=== PATIENT | female | born 1970 | race Caucasian/White ===

== ENCOUNTER 2022-01-02 17:02 | Emergency (ER) | payer OTHER, SELFPAY ==
--- NOTE | ~2022-01-02 | XR_ITS ---
EXAMINATION: XR CHEST CLINICAL INFORMATION: Chest pain COMPARISON: None TECHNIQUE: Frontal view of the chest was obtained. FINDINGS: No significant abnormality is noted involving the heart, lungs, mediastinum, bony thorax or soft tissues. Surgical clips are noted in the gallbladder fossa. XR/XR chest 1V IMPRESSION: Unremarkable examination.
[2022-01-02 17:15] VITALS: BP 122/69; PULSE 72; RESP 18; TEMP 36.7; O2SAT 99; BMI 35.9
--- NOTE | 2022-01-02 17:19 | ECG_ITS ---
Test Reason : chest pain Blood Pressure : / mmHG Vent. Rate : 069 BPM Atrial Rate : 069 BPM P-R Int : 162 ms QRS Dur : 080 ms QT Int : 398 ms P-R-T Axes : 069 069 035 degrees QTc Int : 426 ms Normal sinus rhythm Normal ECG When compared with ECG of 23-NOV-2017 01:29, No significant change was found Referred By: Generic ED Physician Electronically Signed By:Evan Méndez
[2022-01-02 20:17] LABS: MANUAL DIFF FLAG NO
[2022-01-02 20:19] LABS: Basophils Absolute Auto 0.1 X10*3/uL (0.0-0.2); Basophils Percent Auto 0.6 % (0-2); Eosinophils Absolute Auto 0.2 X10*3/uL (0.0-0.4); Eosinophils Percent Auto 2.2 % (0-4); Hematocrit 42.4 % (37.0-47.0); Imm Gran Abs Auto 0.02 X10*3/uL (0.00-0.03); Imm Gran Pct Auto 0.2 % (0.0-0.4); Lymphocytes Absolute Auto 2.7 X10*3/uL (1.2-4.9); Lymphocytes Percent Auto 29.1 % (20-40); Mean Corpuscular Volume 93.8 fL (80.0-98.0); Mean Platelet Volume 10.7 fL (9.4-12.3); Monocytes Absolute Auto 0.6 X10*3/uL (0.1-1.2); Monocytes Percent Auto 5.9 % (2-11); Neutrophils Absolute Auto 5.8 x10*3/uL (2.0-8.3); Platelet Count 270 X10*3/uL (160-400); Red Blood Count 4.52 X10*6/uL (4.20-5.50); Red Cell Distribution Width 13.3 % (11.0-16.0); White Blood Count 9.3 X10*3/uL (4.8-10.8)
[2022-01-02 20:35] LABS: Anion Gap 13 (12-20); Blood Urea Nitrogen 10 mg/dL (9-16); Calcium 9.2 mg/dL (8.4-10.2); Carbon Dioxide 23 mmol/L (22-29); Chloride 106 mmol/L (96-108); Creatinine Clr Calc Pharmacy 90.7; Estimated Glomerular Filt Rate > 60; Glucose Random 122 mg/dL (60-115); Potassium 4.3 mmol/L (3.3-5.1); Sodium 138 mmol/L (135-145)
[2022-01-02 20:42] LABS: Troponin-I High Sensitivity < 3.5 ng/L (<3.5-17.0)
--- NOTE | 2022-01-02 21:26 | ED.CHESTPAIN ---
HPI - Chest Pain General Chief Complaint: Chest Pain Stated Complaint: headache,left arm numbness Time Seen by Provider: 01/02/22 21:26 Source: patient Mode of arrival: ambulatory Limitations: language barrier (Patient's 1st language is [place], she does understand some [place], the patient's speaks [place] and [place]ayan) History of Present Illness HPI narrative: 51-year-old female who presents emergency department for evaluation of dizziness and chest pain. Patient states she woke up this morning and after turning her head she felt dizzy. She describes the sensation is if she is floating and spinning in the air. She states that every time she turns her head or bends forward she gets dizzy. She states the dizziness was associated with nausea but no vomiting. Patient states this morning she had a brief episode of chest tightness. She runs a hand across her chest when asked to localize the pain. She states that the pain was constant that lasted minutes and then resolved. The pain did radiate down her left arm. She states that her left arm and fingers were tingling. She states the pain was moderate intensity. She has not had any other episodes since this morning. She states however that the dizziness has persisted. She states she has had similar dizziness in the past. MD complaint: chest pain Onset (ago): minute(s) (5) Timing of current episode: other (One episode this morning) Prior episodes: No Onset: during rest Pain location: other (Across the anterior chest) Pain radiation: left arm (Tingling as the left arm and left hand) Severity: moderate Pain scale (0-10): 5 Quality: tightness Relieving factors: other (Resolved spontaneously) Exacerbating factors: nothing Associated symptoms: nausea Treatment prior to arrival: none Related Data Previous Rx's Medication Instructions Recorded meclizine 25 mg tablet (Dramamine 25 mg PO TID PRN dizziness #20 tabs 01/02/22 Less Drowsy) ondansetron 4 mg disintegrating 4 mg PO Q6-8H PRN nausea and 01/02/22 tablet vomiting #14 tabs Allergies Allergy/AdvReac Type Severity Reaction Status Date / Time No Known Allergies Allergy Verified 01/02/22 17:15 [No Known Allergies*] Review of Systems Review of Systems: Yes all other systems are reviewed and are negative [facility] Past Medical History [facility] Narrative: Past medical history: None. Past surgical history: Hernia repair and cholecystectomy. Social history: She is her is here in the emergency department with her. She denies tobacco, alcohol and drug use Social History Social History Advance Directives: No Advance Directives Information Provided: Yes Physical Exam Vital Signs: Vital Signs: Last Vital Signs Temp 97.7 F 01/02/22 21:35 Pulse 68 01/02/22 21:35 Resp 15 01/02/22 21:35 BP 137/80 01/02/22 21:35 Pulse Ox 99 01/02/22 21:35 O2 Del Method 01/02/22 21:35 BMI result Body Mass Index 35.9 Const: General: cooperative and no acute distress Orientation/consciousness: oriented to person and oriented to place Limitations: no limitations HEENT: Head: Yes normal to inspection, Yes normocephalic and Yes atraumatic Ears: external ears normal General nose exam: Normal external nose present Face and sinus: Yes normal facial exam Mouth: Normal oral and palatal mucosa present Throat: Yes posterior oropharynx normal Eyes: Alignment and Position: alignment normal Periorbital: periorbital findings normal Eyelids: Yes eyelids normal Conjunctivae: conjunctivae normal Sclerae: sclerae normal Pupils: Equal, round and reactive pupils present EOM: EOMs intact bilaterally and Nystagmus present (Lateral) Neck: Neck: Yes normal visual inspection, Yes no lymphadenopathy, Yes trachea midline and Yes supple Chest: Chest palpation & inspection: normal inspection of the chest and normal palpation of entire chest wall Resp: Effort & Inspection: normal respiratory effort and able to speak in complete sentences Auscultation: clear to auscultation bilaterally Cardio: Rate: regular rate Rhythm: regular rhythm Heart sounds: S1 normal heart sound present, S2 normal heart sound present and no murmurs GI: Inspection: Yes normal to inspection Palpation (GI): Soft to palpation, nontender and no guarding Auscultation: normal bowel sounds : General: Yes no CVA tenderness Back/Spine/Pelvis: Back: no CVA tenderness Skin: General skin exam: no rashes or lesions noted Neuro: General: oriented to person and oriented to place Cranial nerves: Yes CN's II-XII intact bilaterally, Yes Equal, round and reactive pupils present and Yes Nystagmus present (Lateral) Cognition (Neuro): normal cognition Motor exam (neuro): 5/5 motor strength present throughout Coordination: [id number] test normal, ejsr-cz-[id number] test normal and other (Symptomatic dizziness with position change, lateral nystagmus) Extrem: General: Yes normal to inspection Psych: Appearance: grossly normal Speech and movement: Normal speech and movement present Affect: normal affect Attitude: cooperative Thought process: Normal thought process present Thought content: Normal thought content present Course Course Course Narrative: 51-year-old female who presents emergency department for evaluation of positional vertigo and 1 brief episode of chest pain that occurred this morning. Patient's vertigo came on suddenly and is worse with position change. Patient's neurologic exam was normal with normal cerebellar exam. With sitting up on the stretcher she had dizziness with lateral nystagmus. The patient's laboratory evaluation included a CBC and BMP which was normal. The patient's high sensitivity troponin I was below detectable limits. The patient's 12 EKG was normal. Patient's presentation findings are consistent with the patient and the patient's . The patient was given meclizine 25 mg orally and Zofran ODT 4 mg. Patient was given printed and verbal instructions on positional vertigo. She was given prescriptions for meclizine and Zofran ODT. MDM - Chest Pain Medical Records Data Attestation: I reviewed the patient's medical records. Lab Data Attestation: I reviewed the patient's lab results. Result diagrams: 01/02/22 20:13 01/02/22 20:13 Labs: Lab Results 01/02/22 01/02/22 01/02/22 Range/Units 20:13 20:13 20:13 WBC 9.3 (4.8-10.8) X10*3/uL RBC 4.52 (4.20-5.50) X10*6/uL Hgb 14.0 (12.0-16.0) g/dl Hct 42.4 (37.0-47.0) % MCV 93.8 (80.0-98.0) fL MCH 31.0 (27.0-33.0) pg MCHC 33.0 (31.0-35.0) g/dl RDW 13.3 (11.0-16.0) % Plt Count 270 (160-400) X10*3/uL MPV 10.7 (9.4-12.3) fL Immature Gran % (Auto) 0.2 (0.0-0.4) % Neut % (Auto) 62.0 (45-73) % Lymph % (Auto) 29.1 (20-40) % [place] % (Auto) 5.9 (2-11) % Eos % (Auto) 2.2 (0-4) % Baso % (Auto) 0.6 (0-2) % Lymph # (Auto) 2.7 (1.2-4.9) X10*3/uL [place] # (Auto) 0.6 (0.1-1.2) X10*3/uL Eos # (Auto) 0.2 (0.0-0.4) X10*3/uL Baso # (Auto) 0.1 (0.0-0.2) X10*3/uL Abs Immat Gran (auto) 0.02 (0.00-0.03) X10*3/uL Absolute Neuts (auto) 5.8 (2.0-8.3) x10*3/uL Absolute Nucleated RBC 0.000 (0.0-0.012) X10*3/uL Nucleated RBC % (auto) 0.0 (0.0-0.2) /100WBC Sodium 138 (135-145) mmol/L Potassium 4.3 (3.3-5.1) mmol/L Chloride 106 (96-108) mmol/L Carbon Dioxide 23 (22-29) mmol/L Anion Gap 13 (12-20) BUN 10 (9-16) mg/dL Creatinine 0.76 (0.5-1.4) mg/dL Estim Creat Clear Calc 90.7 Estimated GFR > 60 Random Glucose 122 H (60-115) mg/dL Calcium 9.2 (8.4-10.2) mg/dL Troponin I High Sens < 3.5 (<3.5-17.0) ng/L ECG Data ECG #1: Attestation: I personally reviewed and interpreted this ECG as follows: Interpretation: 1432: Normal sinus rhythm with a rate of 60, normal NM interval QRS duration QTC interval, no ST segment elevation, no ST segment depression, no PACs, no PVCs, no significant T-wave abnormalities, this is a normal EKG. Discharge Plan Discharge Clinical Impression: Chest pain Benign paroxysmal positional vertigo Qualifiers: Laterality: unspecified laterality Qualified Code(s): H81.10 - Benign paroxysmal vertigo, unspecified ear Patient Disposition: Home, Self-Care Instructions: Benign Paroxysmal Positional Vertigo (ED) Additional Instructions: Your blood work was normal. Your EKG was unremarkable. Your examination is consistent with positional vertigo. Take meclizine 25 mg pills, 1 pill 3 times a day for the next 3 days for dizziness then as needed for dizziness. This medication will make you sleepy. Do not drive or work while taking this medication. Take Zofran ODT 4 mg pills, 1 pill dissolved in your mouth every 8 hours as needed for nausea and vomiting. Follow-up with your doctor in 2 days. Please return to the emergency department if your symptoms get worse or if you develop any symptoms that are concerning to you. Please see work note. Prescriptions: New meclizine [Dramamine Less Drowsy] 25 mg tablet 25 mg PO TID PRN (Reason: dizziness) Qty: 20 0RF ondansetron 4 mg tablet,disintegrating 4 mg PO Q6-8H PRN (Reason: nausea and vomiting) Qty: 14 0RF Stand Alone Forms: Work/School Release
[2022-01-02 21:35] VITALS: BP 137/80; PULSE 68; RESP 15; TEMP 36.5; O2SAT 99
[2022-01-02 22:28] VITALS: BP 132/70; PULSE 69; RESP 18; O2SAT 97
[2022-01-02] MEDS: Meclizine HCl 25 MG TABLET PO (22:57)
[2022-01-02] MEDS: Ondansetron ODT 4 MG TAB.RAPDIS TRANSLINGU (22:57)
== END 2022-01-02 22:58 | disposition home or self-care (01) ==
PROVIDERS: Emergency Provider Emergency Medicine Emergency Medical Services; PCP Internal Medicine
DX: R07.9 Chest pain, unspecified (principal); H81.10 Benign paroxysmal vertigo, unspecified ear
CPT/HCPCS: 36415; 71045; 80048; 84484; 85025; 93005; 99284

== ENCOUNTER 2023-04-20 00:06 | Emergency (ER) | payer OTHER, SELFPAY ==
--- NOTE | 2023-04-20 | ECG_ITS ---
Test Reason : MITCHD Blood Pressure : / mmHG Vent. Rate : 074 BPM Atrial Rate : 074 BPM P-R Int : 168 ms QRS Dur : 080 ms QT Int : 394 ms P-R-T Axes : 063 074 044 degrees QTc Int : 437 ms Normal sinus rhythm Normal ECG When compared with ECG of 02-JAN-2022 17:17, No significant change was found Referred By: Generic ED Physician Electronically Signed By:ZAKIA KHAN MD
[2023-04-20 00:18] VITALS: BP 161/87; PULSE 72; RESP 18; O2SAT 97; BMI 30.8
[2023-04-20 00:26] LABS: MANUAL DIFF FLAG NO
[2023-04-20 00:28] LABS: Basophils Percent Auto 0.5 % (0-2); Eosinophils Absolute Auto 0.3 X10*3/uL (0.0-0.4); Eosinophils Percent Auto 2.8 % (0-4); Hematocrit 39.3 % (37.0-47.0); Hemoglobin 13.3 g/dl (12.0-16.0); Imm Gran Abs Auto 0.02 X10*3/uL (0.00-0.03); Imm Gran Pct Auto 0.2 % (0.0-0.4); Lymphocytes Absolute Auto 2.7 X10*3/uL (1.2-4.9); Lymphocytes Percent Auto 30.8 % (20-40); Mean Corpuscular HGB Conc 33.8 g/dl (31.0-35.0); Mean Corpuscular Hemoglobin 31.4 pg (27.0-33.0); Mean Corpuscular Volume 92.7 fL (80.0-98.0); Mean Platelet Volume 10.3 fL (9.4-12.3); Monocytes Absolute Auto 0.5 X10*3/uL (0.1-1.2); Monocytes Percent Auto 5.8 % (2-11); Neutrophils Absolute Auto 5.3 x10*3/uL (2.0-8.3); Neutrophils Percent Auto 59.9 % (45-73); Platelet Count 315 X10*3/uL (160-400); Red Blood Count 4.24 X10*6/uL (4.20-5.50); Red Cell Distribution Width 13.1 % (11.0-16.0); White Blood Count 8.9 X10*3/uL (4.8-10.8)
[2023-04-20 00:39] LABS: Anion Gap 13 (12-20); Blood Urea Nitrogen 11 mg/dL (9-16); Calcium 8.9 mg/dL (8.4-10.2); Carbon Dioxide 22 mmol/L (22-29); Chloride 107 mmol/L (96-108); Creatinine Clr Calc Pharmacy 83.8; Estimated Glomerular Filt Rate > 60; Glucose Random 168 mg/dL (60-115); Potassium 3.2 mmol/L (3.3-5.1); Sodium 139 mmol/L (135-145)
[2023-04-20 00:49] LABS: Troponin-I High Sensitivity < 2.7 ng/L (<3.5-17.0)
[2023-04-20 01:52] VITALS: BP 118/71; PULSE 69; RESP 12; TEMP 36.4; O2SAT 97
[2023-04-20 02:00] LABS: Appearance Urine Clear; Color Urine Yellow; Glucose Urine UA Negative (Negative); Leukocyte Esterase Urine Trace (Negative); Nitrite Urine Negative (Negative); PH 6.5 (5.0-9.0); UMIC TRIGGER UACC YES; Urine Blood Trace (Negative); Urine Ketones Negative (Negative); Urine Protein Negative (Neg-Trace)
[2023-04-20 02:05] LABS: Bacteria Urine None Seen (None Seen); Hyaline Casts Urine 0-2 /LPF (0-2); WBC Urine 0-5 /HPF (0-5)
[2023-04-20 04:53] VITALS: BP 114/67; PULSE 65; RESP 16; O2SAT 98
[2023-04-20 06:24] LABS: Troponin-I High Sensitivity < 2.7 ng/L (<3.5-17.0)
--- NOTE | 2023-04-20 06:31 | ED.CHESTPAIN ---
HPI - Chest Pain General Chief Complaint: Chest Pain Stated Complaint: Chest Pain Time Seen by Provider: 04/20/23 06:24 Source: patient Mode of arrival: ambulatory Limitations: no limitations History of Present Illness HPI narrative: 53 yo female presenting to the ER for evaluation of 2 days of chest pains across the entire chest along with nausea, SOB, periumbilical abdominal pains. She states the pains were diffuse across the entire chest and was constant but is now resolved. The periumbilical pain was intermittent and is also now resolved. No vomiting or diarrhea. No fever or chills. No cough, difficulty breathing. MD complaint: chest pain Onset (ago): day(s) (2) Timing of current episode: constant Prior episodes: Yes Onset: during rest Pain location: left chest and right chest Pain radiation: none Severity: moderate Quality: aching Relieving factors: nothing Exacerbating factors: nothing Associated symptoms: nausea Treatment prior to arrival: none Risk Factors Coronary artery disease risk factors: none Thoracic aortic dissection risk factors: none Related Data Previous Rx's Medication Instructions Recorded meclizine 25 mg tablet (Dramamine 25 mg PO TID PRN dizziness #20 tabs 01/02/22 Less Drowsy) ondansetron 4 mg disintegrating 4 mg PO Q6-8H PRN nausea and 01/02/22 tablet vomiting #14 tabs Allergies Allergy/AdvReac Type Severity Reaction Status Date / Time No Known Allergies Allergy Verified 04/20/23 00:26 [No Known Allergies*] Review of Systems Review of Systems: Yes all other systems are reviewed and are negative [facility] Social History Social History Advance Directives: No Advance Directives Information Provided: No Patient : No Physical Exam Vital Signs: Vital Signs: Last Vital Signs Temp 97.6 F 04/20/23 01:52 Pulse 65 04/20/23 04:53 Resp 16 04/20/23 04:53 BP 114/67 04/20/23 04:53 Pulse Ox 98 04/20/23 04:53 O2 Del Method Room Air 04/20/23 04:53 BMI result Body Mass Index 30.8 Appearance: Alert. Oriented X3. No acute distress. Head: normocephalic, atraumatic. Eyes: Pupils equal, round and reactive to light. ENT: Pharynx normal. No tonsillar swelling or exudate. Neck: Normal inspection. Neck supple. CVS: Normal heart rate and rhythm. Pulses normal. Nontender chest wall Respiratory: No respiratory distress. Breath sounds normal. Abdomen: Soft and nontender. +BS x4 Skin: Skin warm and dry. Normal skin color. Normal skin turgor. No rashes. Extremities: No lower extremity edema. No joint swelling. Neuro/psych: Oriented X 3. No motor deficit. No sensory deficit. CN II-XII intact. Normal speech and cognition. Medications Administered Discontinued Medications Generic Name Dose Route Start Last Admin Trade Name Freq PRN Reason Stop Dose Admin Potassium Chloride 40 meq 04/20/23 07:50 04/20/23 07:56 Potassium Chloride Er 20 Meq Tab.Er.Prt PO 04/20/23 07:51 40 meq ONCE ONE Administration Medical Decision Making Medical Decision Making [facility] Narrative: 53 yo female presenting with chest pain, abdominal pain, nausea, dry mouth x2 days however all symptoms all improved today. Cardiac workup is unremarkable, trop negative x2. no current chest pain. heart score 1 abd soft and nontender covid and flu negative comfortable w/ discharge home w/ outpatient follow up PRN and return precautions Differential Diagnosis Differential Diagnoses: The differential diagnosis associated with the presentation includes costochondritis, viral syndrome, PNA, bronchitis, pericarditis, pancreatitis, doubt PE or ACS Admission/Observation Consideration of admission/observation: Escalation of care including admission/observation considered considered on arrival. trop negative x2 Lab Data [facility] Lab Attestation statement: I reviewed the patient's lab results. mild hypokalemia 04/20/23 00:22 04/20/23 00:22 Labs: Lab Results 04/20/23 04/20/23 04/20/23 Range/Units 00:22 01:54 05:55 WBC 8.9 (4.8-10.8) X10*3/uL RBC 4.24 (4.20-5.50) X10*6/uL Hgb 13.3 (12.0-16.0) g/dl Hct 39.3 (37.0-47.0) % MCV 92.7 (80.0-98.0) fL MCH 31.4 (27.0-33.0) pg MCHC 33.8 (31.0-35.0) g/dl RDW 13.1 (11.0-16.0) % Plt Count 315 (160-400) X10*3/uL MPV 10.3 (9.4-12.3) fL Immature Gran % (Auto) 0.2 (0.0-0.4) % Neut % (Auto) 59.9 (45-73) % Lymph % (Auto) 30.8 (20-40) % [place] % (Auto) 5.8 (2-11) % Eos % (Auto) 2.8 (0-4) % Baso % (Auto) 0.5 (0-2) % Lymph # (Auto) 2.7 (1.2-4.9) X10*3/uL [place] # (Auto) 0.5 (0.1-1.2) X10*3/uL Eos # (Auto) 0.3 (0.0-0.4) X10*3/uL Baso # (Auto) 0.0 (0.0-0.2) X10*3/uL Abs Immat Gran (auto) 0.02 (0.00-0.03) X10*3/uL Absolute Neuts (auto) 5.3 (2.0-8.3) x10*3/uL Absolute Nucleated RBC 0.000 (0.0-0.012) X10*3/uL Nucleated RBC % (auto) 0.0 (0.0-0.2) /100WBC Sodium 139 (135-145) mmol/L Potassium 3.2 L D (3.3-5.1) mmol/L Chloride 107 (96-108) mmol/L Carbon Dioxide 22 (22-29) mmol/L Anion Gap 13 (12-20) BUN 11 (9-16) mg/dL Creatinine 0.86 (0.5-1.4) mg/dL Estim Creat Clear Calc 83.8 Estimated GFR > 60 Random Glucose 168 H (60-115) mg/dL Calcium 8.9 (8.4-10.2) mg/dL Troponin I High Sens < 2.7 < 2.7 (<3.5-17.0) ng/L Urine Color Yellow Urine Appearance Clear Urine pH 6.5 (5.0-9.0) Ur Specific [place] 1.020 (1.005-1.025) Urine Protein Negative (Neg-Trace) mg/dL Urine Glucose (UA) Negative (Negative) mg/dL Urine Ketones Negative (Negative) mg/dL Urine Blood Trace H (Negative) Urine Nitrite Negative (Negative) Ur Leukocyte Esterase Trace H (Negative) Urine RBC 6-10 H (0-2) /HPF Urine WBC 0-5 (0-5) /HPF Ur Squamous Epith Cells 3-5 (0-2) /HPF Urine Bacteria None Seen (None Seen) Hyaline Casts 0-2 (0-2) /LPF COVID-19 (HENRRY) (Negative) COVID-19 Clin Com Influenza Type A (KIMBERLI) (Negative) Influenza Type B (KIMBERLI) (Negative) Influenza A & B Note 04/20/23 Range/Units 07:10 WBC (4.8-10.8) X10*3/uL RBC (4.20-5.50) X10*6/uL Hgb (12.0-16.0) g/dl Hct (37.0-47.0) % MCV (80.0-98.0) fL MCH (27.0-33.0) pg MCHC (31.0-35.0) g/dl RDW (11.0-16.0) % Plt Count (160-400) X10*3/uL MPV (9.4-12.3) fL Immature Gran % (Auto) (0.0-0.4) % Neut % (Auto) (45-73) % Lymph % (Auto) (20-40) % [place] % (Auto) (2-11) % Eos % (Auto) (0-4) % Baso % (Auto) (0-2) % Lymph # (Auto) (1.2-4.9) X10*3/uL [place] # (Auto) (0.1-1.2) X10*3/uL Eos # (Auto) (0.0-0.4) X10*3/uL Baso # (Auto) (0.0-0.2) X10*3/uL Abs Immat Gran (auto) (0.00-0.03) X10*3/uL Absolute Neuts (auto) (2.0-8.3) x10*3/uL Absolute Nucleated RBC (0.0-0.012) X10*3/uL Nucleated RBC % (auto) (0.0-0.2) /100WBC Sodium (135-145) mmol/L Potassium (3.3-5.1) mmol/L Chloride (96-108) mmol/L Carbon Dioxide (22-29) mmol/L Anion Gap (12-20) BUN (9-16) mg/dL Creatinine (0.5-1.4) mg/dL Estim Creat Clear Calc Estimated GFR Random Glucose (60-115) mg/dL Calcium (8.4-10.2) mg/dL Troponin I High Sens (<3.5-17.0) ng/L Urine Color Urine Appearance Urine pH (5.0-9.0) Ur Specific [place] (1.005-1.025) Urine Protein (Neg-Trace) mg/dL Urine Glucose (UA) (Negative) mg/dL Urine Ketones (Negative) mg/dL Urine Blood (Negative) Urine Nitrite (Negative) Ur Leukocyte Esterase (Negative) Urine RBC (0-2) /HPF Urine WBC (0-5) /HPF Ur Squamous Epith Cells (0-2) /HPF Urine Bacteria (None Seen) Hyaline Casts (0-2) /LPF COVID-19 (HENRRY) Negative (Negative) COVID-19 Clin Com See Note Influenza Type A (KIMBERLI) Negative (Negative) Influenza Type B (KIMBERLI) Negative (Negative) Influenza A & B Note See Note Independent Interpretation I performed an independent interpretation of an: EKG Interpretation: ekg w/ normal sinus rhythm, HR 74 bpm, normal SC interval and QTC, no ST segment elevations or depressions Independent Historian Clinical information obtained from an independent historian. History obtained from or confirmed by: Other (adult daughter at bedside) External Record Review External record reviewed: Prior outpatient labs Tests considered The following testing was considered but not selected: cxr considered, lungs clear, no cough Prescription Management I considered prescription management with: Pain Medication Scores Heart Score History: -0- slightly suspicious ECG: -0- normal Age: -1- >45 - <65 Risk factory: -0- no risk factors known Troponin: -0- < or = normal limit Score: 1 Risk: 1.7% Critical Care Time Critical Care Time Critical Care Time: No Discharge Plan Discharge Clinical Impression: Atypical chest pain Patient Disposition: Home, Self-Care Instructions: Noncardiac Chest Pain (ED) Additional Instructions: Your workup today was reassuring with negative cardiac enzymes, normal labs, EKG and chest x-ray. Your potassium was mildly low and you were given oral repletion. Your symptoms may be due to a viral illness. You did test negative for COVID and Flu today Recommend rest, drink plenty of fluids and stick to a bland diet while you are not feeling well Follow up with your doctor If you develop new or worsening symptoms call 911 or come back to the ER for further evaluation. Araujo examen de hoy fue tranquilizador con enzimas card?acas negativas, an?lisis de laboratorio, electrocardiograma y radiograf?a de t?rax normales. Araujo potasio estaba levemente bajo y le administraron reposici?n oral. Lorena s?ntomas pueden deberse a amy enfermedad viral. Las pruebas de COVID y gripe dieron negativo hoy Recomienda descansar, beber mucho l?quido y seguir amy dieta blanda mientras no te sientas mar. Tasha un seguimiento con araujo m?dico Si desarrolla s?ntomas nuevos o que empeoran, llame al 911 o regrese a la maritza de emergencias para amy evaluaci?n adicional. Prescriptions: No Action meclizine [Dramamine Less Drowsy] 25 mg tablet 25 mg PO TID PRN (Reason: dizziness) Qty: 20 0RF ondansetron 4 mg tablet,disintegrating 4 mg PO Q6-8H PRN (Reason: nausea and vomiting) Qty: 14 0RF Interventions: ED Discharge Assessment Last Done: 04/20/23 07:58 Print Language: [place]
[2023-04-20 07:34] LABS: COVID-19 Test Negative (Negative); IDNOW Serial# 08D9AD1C
[2023-04-20 07:35] LABS: IDNOW Serial# BCCEAD1C; Influenza A Negative (Negative); Influenza B2 Negative (Negative)
[2023-04-20] MEDS: Potassium Chloride ER 20 MEQ TAB.ER.PRT 40 MEQ PO (07:56)
[2023-04-20 10:45] LABS: Lipase 25 U/L (8-78)
== END 2023-04-20 08:22 | disposition home or self-care (01) ==
PROVIDERS: Physician Assistant; Emergency Provider Emergency Medicine
DX: R07.89 Other chest pain (principal); R11.2 Nausea with vomiting, unspecified; Z11.52 Encounter for screening for COVID-19; Z20.822 Contact with and (suspected) exposure to COVID-19; Z79.899 Other long term (current) drug therapy
CPT/HCPCS: 36415; 80048; 81001; 83690; 84484; 85025; 87502; 87635; 93005; 99284; 99285